=== PATIENT | female | born 2000 | race Caucasian/White ===

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

== ENCOUNTER 2018-03-25 09:54 | Emergency (ER) | payer MEDICAID ==
[~2018-03-25] VITALS: Ht 167.6 cm; Wt 127.0 kg
[2018-03-25] MEDS ORDERED: ONDANSETRON ODT 4 MG PO ONE (10:30)
--- NOTE | 2018-03-25 10:43 | NUR ---
PT TO ED ROOM 26 AMBULATORY FROM [facility] IN [facility]. LAB AT BEDSIDE, PT TO PROVIDE UA, NO NEEDS AT THIS TIME. JOYCELYNTM
[2018-03-25 11:00] VITALS: BP 139/72
[2018-03-25 11:14] LABS: BASOPHILS # (AUTO) 0.05 x10^3/uL (0-0.3); BASOPHILS % (AUTO) 0 % (0-1); EOSINOPHILS # (AUTO) 0.18 x10^3/uL (0-0.8); EOSINOPHILS % (AUTO) 1 % (1-7); LYMPHOCYTES # (AUTO) 3.18 x10^3/uL (1-6.1); LYMPHOCYTES % (AUTO) 25 % (22-44); MD NO; MEAN CORPUSCULAR HEMOGLOBIN 27.7 pg (27.0-34.8); MEAN CORPUSCULAR VOLUME 83.9 fL (80-100); MEAN PLATELET VOLUME 8.5 fL (7.4-10.4); MONOCYTES # (AUTO) 0.55 x10^3/uL (0-1.4); MONOCYTES % (AUTO) 4 % (2-9); NEUTROPHILS # (AUTO) 8.65 x10^3/uL (1.8-8.0); NEUTROPHILS % (AUTO) 69 % (42-75); PLATELET COUNT 405 x10^3/uL (130-400); RED BLOOD COUNT 5.05 x10^6/uL (3.82-5.3); RED CELL DISTRIBUTION WIDTH 14.4 % (9.6-15.2)
[2018-03-25] MEDS ORDERED: ONDANSETRON ODT 4 MG ONE (11:17)
[2018-03-25 11:21] LABS: ANION GAP 8 mmol/L (5-15); CALCIUM 9.4 mg/dL (8.5-10.1); CHLORIDE 108 mmol/L (98-107)
[2018-03-25 11:26] LABS: ALANINE AMINOTRANSFERASE 76 U/L (12-78); ALKALINE PHOSPHATASE 79 U/L (45-117); BILIRUBIN,TOTAL 0.4 mg/dL (0.2-1.0); CREATININE 0.86 mg/dL (0.55-1.02); TOTAL PROTEIN 8.2 g/dL (6.4-8.2)
--- NOTE | 2018-03-25 11:56 | NUR ---
ASSUMED CARE AT THIS TIME. PT GIVEN PO FLUIDS PER ORDER. PT RESTING IN BED AND NAND.
[2018-03-25 12:04] LABS: MICROSCOPIC AUTO
[2018-03-25 12:06] LABS: CULTURE INDICATED? YES
--- NOTE | 2018-03-25 12:13 | NUR ---
Patient/Caregiver given discharge instructions and they have confirmed that they understand the instructions. Patient ambulatory with steady gait.
== END 2018-03-25 12:24 | disposition home or self-care (01) ==
LOC: ED 12:15
DX: B34.9 Viral infection, unspecified (principal)
CPT/HCPCS: 36415; 71046; 80053; 81001; 83690; 84703; 85025; 87086; 99284; Q0162

== ENCOUNTER 2018-04-24 20:24 | Emergency (ER) | payer MEDICAID ==
[~2018-04-24] VITALS: Ht 167.6 cm; Wt 123.0 kg
[2018-04-24 20:28] VITALS: BP 132/72
--- NOTE | 2018-04-24 22:53 | NUR ---
NO ANSWER FOR RME ROOM.
--- NOTE | 2018-04-24 23:00 | NUR ---
NO ANSWER FOR RME ROOM.
--- NOTE | 2018-04-24 23:30 | NUR ---
no answer in lobby # [phone] at [phone]
== END 2018-04-24 23:46 | disposition left against medical advice (07) ==
LOC: ED 23:33
DX: J06.9 Acute upper respiratory infection, unspecified (principal)
CPT/HCPCS: 71046; 99283

== ENCOUNTER 2018-04-25 03:13 | Emergency (ER) | payer MEDICAID ==
[~2018-04-25] VITALS: Ht 167.6 cm; Wt 128.4 kg
[2018-04-25 03:17] VITALS: BP 131/89
[2018-04-25] MEDS ORDERED: ACETAMINOPHEN 325 MG TABLET ONE ×2 (04:00→04:04)
[2018-04-25] MEDS ORDERED: ACETAMINOPHEN 325 MG TABLET PO ONE (04:00)
== END 2018-04-25 04:16 | disposition home or self-care (01) ==
LOC: ED 04:00
DX: B34.9 Viral infection, unspecified (principal); G43.909 Migraine, unspecified, not intractable, without status migrainosus
CPT/HCPCS: 99282

== ENCOUNTER 2018-06-02 14:02 | Emergency (ER) | payer MEDICAID ==
[~2018-06-02] VITALS: Ht 167.6 cm; Wt 127.5 kg
[2018-06-02 14:53] LABS: BASOPHILS # (AUTO) 0.12 x10^3/uL (0-0.3); BASOPHILS % (AUTO) 1 % (0-1); EOSINOPHILS % (AUTO) 1 % (1-7); LYMPHOCYTES # (AUTO) 2.21 x10^3/uL (1-6.1); LYMPHOCYTES % (AUTO) 22 % (22-44); MD NO; MEAN CORPUSCULAR HEMOGLOBIN 27.7 pg (27.0-34.8); MEAN CORPUSCULAR HGB CONC 33.6 g/dL (32.4-35.8); MEAN CORPUSCULAR VOLUME 82.4 fL (80-100); MONOCYTES # (AUTO) 0.73 x10^3/uL (0-1.4); MONOCYTES % (AUTO) 7 % (2-9); NEUTROPHILS # (AUTO) 6.86 x10^3/uL (1.8-8.0); NEUTROPHILS % (AUTO) 69 % (42-75); PLATELET COUNT 371 x10^3/uL (130-400); RED BLOOD COUNT 4.72 x10^6/uL (3.82-5.3); RED CELL DISTRIBUTION WIDTH 14.5 % (9.6-15.2)
[2018-06-02 14:59] LABS: RAPID INFLUENZA A Negative (Negative); RAPID INFLUENZA B Negative (Negative)
[2018-06-02 15:05] LABS: ALANINE AMINOTRANSFERASE 55 U/L (12-78); ALBUMIN 3.7 g/dL (3.4-5.0); ANION GAP 6 mmol/L (5-15); CALCIUM 9.4 mg/dL (8.5-10.1); CHLORIDE 110 mmol/L (98-107); CREATININE 0.68 mg/dL (0.55-1.02)
[2018-06-02 15:10] LABS: ALKALINE PHOSPHATASE 71 U/L (45-117); BILIRUBIN,TOTAL 0.2 mg/dL (0.2-1.0); TOTAL PROTEIN 7.5 g/dL (6.4-8.2)
--- NOTE | 2018-06-02 15:55 | NUR ---
PT AMBULATORY WITH STEADY GAIT TO ROOM FROM [facility]
--- NOTE | 2018-06-02 16:26 | NUR ---
PT PRESENTED TO ED WITH N/V, HEADACHE, FEVER AND GENERAL MALAISE SINCE TODAY. PT PLACED IN ROOM AND PLACED ON BP AND CONT. PULSE OXIMETER. ASSESSMENT COMPLETED. PT WAS SEEN IN PIT AND ORDERS RECEIVED.
[2018-06-02] MEDS ORDERED: ONDANSETRON ODT 4 MG PO ONE (16:30)
[2018-06-02] MEDS ORDERED: KETOROLAC 30 MG/1 ML IM ONE (16:30)
[2018-06-02] MEDS ORDERED: ONDANSETRON ODT 4 MG ONE (16:38)
[2018-06-02] MEDS ORDERED: KETOROLAC 30 MG/1 ML ONE (16:39)
--- NOTE | 2018-06-02 17:01 | NUR ---
REPORT GIVEN TO POLINA SEARS
[2018-06-02 17:05] LABS: MICROSCOPIC AUTO
[2018-06-02 17:06] LABS: CULTURE INDICATED? YES
[2018-06-02 17:27] VITALS: BP 126/78
== END 2018-06-02 17:29 | disposition home or self-care (01) ==
LOC: ED 17:27
DX: R11.2 Nausea with vomiting, unspecified (principal); N30.01 Acute cystitis with hematuria; R07.89 Other chest pain
CPT/HCPCS: 36415; 71046; 80053; 81001; 83690; 84703; 85025; 87086; 87400; 93005; 96372; 99284; J1885; Q0162

== ENCOUNTER 2019-04-03 15:51 | Emergency (ER) | payer MEDICAID ==
[~2019-04-03] VITALS: Ht 167.6 cm; Wt 116.7 kg
[2019-04-03 16:01] VITALS: BP 118/83
[2019-04-03] MEDS ORDERED: IBUPROFEN 200 MG TABLET ONE (16:11)
[2019-04-03] MEDS ORDERED: IBUPROFEN 600 MG TABLET PO ONE (16:30)
== END 2019-04-03 16:46 | disposition home or self-care (01) ==
LOC: ED 16:45
DX: S93.492A Sprain of other ligament of left ankle, initial encounter (principal); G43.909 Migraine, unspecified, not intractable, without status migrainosus; X50.1XXA Overexertion from prolonged static or awkward postures, initial encounter; Y93.89 Activity, other specified; Y92.69 Other specified industrial and construction area as the place of occurrence of the external cause; Y99.8 Other external cause status
CPT/HCPCS: 99283

== ENCOUNTER 2019-05-29 11:55 | Emergency (ER) | payer SELFPAY ==
[~2019-05-29] VITALS: Ht 167.6 cm; Wt 116.5 kg
[2019-05-29 12:06] VITALS: BP 143/92
[2019-05-29] MEDS ORDERED: KETOROLAC 30 MG/1 ML ONE (12:27)
[2019-05-29] MEDS ORDERED: METHOCARBAMOL 750 MG TABLET ONE (12:27)
[2019-05-29] MEDS ORDERED: METHOCARBAMOL 750 MG TABLET PO ONE (12:30)
[2019-05-29] MEDS ORDERED: KETOROLAC 30 MG/1 ML IM ONE (12:30)
--- NOTE | 2019-05-29 12:32 | NUR ---
PT MEDICATED PER MAR
== END 2019-05-29 12:51 | disposition home or self-care (01) ==
LOC: ED 12:50
DX: M54.12 Radiculopathy, cervical region (principal)
CPT/HCPCS: 96372; 99283; J1885; J7512

== ENCOUNTER 2019-09-11 19:19 | Emergency (ER) | payer MEDICAID ==
[~2019-09-11] VITALS: Ht 167.6 cm; Wt 120.3 kg
[2019-09-11] MEDS ORDERED: SODIUM CHLORIDE FLUSH 10ML SYR IVF ONE (20:00)
[2019-09-11] MEDS ORDERED: SODIUM CHLORIDE 0.9% 1,000ML IVBOLUS ONE (20:00)
[2019-09-11 20:02] LABS: BASOPHILS # (AUTO) 0.06 x10^3/uL (0-0.1); BASOPHILS % (AUTO) 1 % (0-1); EOSINOPHILS # (AUTO) 0.15 x10^3/uL (0-0.4); EOSINOPHILS % (AUTO) 2 % (1-7); LYMPHOCYTES # (AUTO) 2.65 x10^3/uL (1-3.4); LYMPHOCYTES % (AUTO) 31 % (22-44); MD NO; MEAN CORPUSCULAR HEMOGLOBIN 27.2 pg (27.0-34.8); MEAN CORPUSCULAR HGB CONC 33.5 g/dL (32.4-35.8); MEAN CORPUSCULAR VOLUME 81.4 fL (80-100); MEAN PLATELET VOLUME 8.3 fL (7.4-10.4); MONOCYTES # (AUTO) 0.73 x10^3/uL (0.2-0.8); MONOCYTES % (AUTO) 9 % (2-9); NEUTROPHILS % (AUTO) 58 % (42-75); PLATELET COUNT 319 x10^3/uL (130-400); RED BLOOD COUNT 4.71 x10^6/uL (3.82-5.3)
--- NOTE | 2019-09-11 20:08 | NUR ---
IV STARTED IN L HAND, PT TOLERATED WELL, LABS DRAWN AND SENT. PT TO IMAGING AT THIS TIME.
[2019-09-11 20:13] LABS: ALANINE AMINOTRANSFERASE 40 U/L (12-78); ALBUMIN 3.4 g/dL (3.4-5.0); ANION GAP 6 mmol/L (5-15); CALCIUM 8.6 mg/dL (8.5-10.1); CHLORIDE 112 mmol/L (98-107); CREATININE 0.92 mg/dL (0.55-1.02)
[2019-09-11 20:18] LABS: ALKALINE PHOSPHATASE 60 U/L (45-117); BILIRUBIN,TOTAL 0.2 mg/dL (0.2-1.0); TOTAL PROTEIN 7.5 g/dL (6.4-8.2)
--- NOTE | 2019-09-11 20:52 | NUR ---
PT RETURNED FROM CT AT THIS TIME. CALL LIGHT IN REACH.
[2019-09-11 21:23] VITALS: BP 128/86
== END 2019-09-11 22:08 | disposition home or self-care (01) ==
LOC: ED 21:30
DX: G43.C0 Periodic headache syndromes in child or adult, not intractable (principal); R10.2 Pelvic and perineal pain; R55 Syncope and collapse; R11.0 Nausea; R94.31 Abnormal electrocardiogram [ECG] [EKG]
CPT/HCPCS: 36415; 70450; 76830; 80053; 84703; 85025; 93005; 96360; 96361; 99285; J7030

== ENCOUNTER 2019-11-10 19:05 | Emergency (ER) | payer MEDICAID ==
[~2019-11-10] VITALS: Ht 167.6 cm; Wt 192.3 kg
--- NOTE | 2019-11-10 19:45 | NUR ---
Assumed care of pt. Pt states atraumatic lower back pain x3 days with mild bilateral lower extremity numbness. Denies tingling. Denies incontinence. Ambualtes independently, steady gait.
[2019-11-10] MEDS ORDERED: HYDROcodone/APAP 5/325 TABLET PO ONE (20:00)
[2019-11-10] MEDS ORDERED: HYDROcodone/APAP 5/325 TABLET ONE (20:05)
--- NOTE | 2019-11-10 20:54 | NUR ---
Pt states good effect from [place]. Pain from 7/10 to 3/10
[2019-11-10] MEDS ORDERED: LIDOCAINE 1%, 10ML INFIL ONE (21:00)
[2019-11-10] MEDS ORDERED: LIDOCAINE-MPF 1%, 5ML ONE ×2 (21:03→21:20)
--- NOTE | 2019-11-10 21:24 | NUR ---
PA at bedside
[2019-11-10 22:01] VITALS: BP 101/68
== END 2019-11-10 22:04 | disposition home or self-care (01) ==
LOC: ED 20:33
DX: L05.01 Pilonidal cyst with abscess (principal); M54.5 Low back pain; G43.909 Migraine, unspecified, not intractable, without status migrainosus
CPT/HCPCS: 10080; 99284

== ENCOUNTER 2020-04-29 16:00 | Emergency (ER) | payer MEDICAID, OTHER ==
[~2020-04-29] VITALS: Ht 167.6 cm; Wt 130.3 kg
--- NOTE | 2020-04-29 16:44 | NUR ---
GAMING MANAGER: PT TO ROOM FROM LOBBY VIA W/C
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
[2020-04-29 17:10] VITALS: BP 150/73
--- NOTE | 2020-04-29 17:33 | NUR ---
PT TO XRAY
--- NOTE | 2020-04-29 17:45 | NUR ---
PT BACK FROM XRAY, RESTING COMFORTABLY
--- NOTE | 2020-04-29 18:24 | NUR ---
DISCHARGE INSTRUCTIONS REVIEWED WITH PT. ALL QUESTIONS ANSWERED AT THIS TIME.
== END 2020-04-29 18:26 | disposition home or self-care (01) ==
LOC: ED 18:25
DX: S29.012A Strain of muscle and tendon of back wall of thorax, initial encounter (principal); R07.89 Other chest pain; M54.2 Cervicalgia; M79.601 Pain in right arm; G43.909 Migraine, unspecified, not intractable, without status migrainosus; V47.6XXA Car passenger injured in collision with fixed or stationary object in traffic accident, initial encounter; Y93.89 Activity, other specified; Y92.89 Other specified places as the place of occurrence of the external cause; Y99.8 Other external cause status
CPT/HCPCS: 71046; 72072; 99284

== ENCOUNTER 2020-06-26 14:51 | Emergency (ER) | payer MEDICAID ==
[~2020-06-26] VITALS: Ht 167.6 cm; Wt 132.0 kg
[2020-06-26 16:11] VITALS: BP 143/73
== END 2020-06-26 16:48 | disposition home or self-care (01) ==
LOC: ED 15:00
DX: B34.9 Viral infection, unspecified (principal); Z20.822 Contact with and (suspected) exposure to COVID-19; R05 Cough; R07.89 Other chest pain; R09.89 Other specified symptoms and signs involving the circulatory and respiratory systems
CPT/HCPCS: 71046; 93005; 99284; U0003

== ENCOUNTER 2020-10-20 22:15 | Emergency (ER) | payer MEDICAID ==
[~2020-10-20] VITALS: Ht 167.6 cm; Wt 133.0 kg
--- NOTE | 2020-10-20 22:45 | NUR ---
SAFETY ANALYST: PT. TO ROOM FROM LOBBY AT THIS TIME.
--- NOTE | 2020-10-20 23:07 | NUR ---
pt at US at this time.
[2020-10-20] MEDS ORDERED: KETOROLAC 60 MG/2 ML ONE (23:22)
[2020-10-20 23:30] LABS: MICROSCOPIC INDICATED
[2020-10-20] MEDS ORDERED: KETOROLAC 30 MG/1 ML IM ONE (23:30)
[2020-10-20 23:47] LABS: BASOPHILS % (AUTO) 1 % (0-1); EOSINOPHILS % (AUTO) 1 % (1-7); LYMPHOCYTES % (AUTO) 23 % (22-44); MEAN CORPUSCULAR HEMOGLOBIN 26.6 pg (27.0-34.8); MEAN CORPUSCULAR HGB CONC 32.9 g/dL (32.4-35.8); MEAN PLATELET VOLUME 7.5 fL (7.4-10.4); MONOCYTES % (AUTO) 7 % (2-9); NEUTROPHILS % (AUTO) 68 % (42-75); PLATELET COUNT 429 x10^3/uL (130-400); RED BLOOD COUNT 4.74 x10^6/uL (3.82-5.3); RED CELL DISTRIBUTION WIDTH 14.9 % (9.6-15.2)
[2020-10-20 23:57] LABS: ALANINE AMINOTRANSFERASE 50 U/L (12-78); ALBUMIN 3.6 g/dL (3.4-5.0); ANION GAP 8 mmol/L (5-15); CALCIUM 8.9 mg/dL (8.5-10.1); CHLORIDE 106 mmol/L (98-107); CREATININE 0.74 mg/dL (0.55-1.02)
[2020-10-21] MEDS ORDERED: ONDANSETRON ODT 4 MG PO ONE
[2020-10-21 00:02] LABS: ALKALINE PHOSPHATASE 72 U/L (45-117); BILIRUBIN,TOTAL 0.3 mg/dL (0.2-1.0); TOTAL PROTEIN 8.2 g/dL (6.4-8.2)
[2020-10-21] MEDS ORDERED: ONDANSETRON ODT 4 MG ONE (00:02)
--- NOTE | 2020-10-21 00:20 | NUR ---
Pt medicated with zofran, resting on gurney, awaiting for us to be read.
--- NOTE | 2020-10-21 01:12 | NUR ---
Break RN: discharge instructions given. All questions and concerns addressed. Patient ambulatory with a steady gait. Belongings with patient.
[2020-10-21 01:13] VITALS: BP 139/82
== END 2020-10-21 01:15 | disposition home or self-care (01) ==
LOC: ED 23:30
DX: E28.2 Polycystic ovarian syndrome (principal); N93.8 Other specified abnormal uterine and vaginal bleeding; M54.5 Low back pain; R42 Dizziness and giddiness; G43.909 Migraine, unspecified, not intractable, without status migrainosus
CPT/HCPCS: 36415; 76830; 80053; 81001; 84703; 85025; 87086; 96372; 99284; J1885; Q0162

== ENCOUNTER 2020-11-21 16:01 | Emergency (ER) | payer MEDICAID ==
[~2020-11-21] VITALS: Ht 167.6 cm; Wt 132.0 kg
[2020-11-21 16:04] VITALS: BP 160/94
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
[2020-11-21] MEDS ORDERED: LIDOCAINE-MPF 1%, 5ML ONE (20:28)
[2020-11-21] MEDS ORDERED: LIDOCAINE 1%, 10ML INFIL ONE (20:30)
[2020-11-21] MEDS ORDERED: CEPHALEXIN 500 MG CAPSULE ONE (20:59)
[2020-11-21] MEDS ORDERED: HYDROcodone/APAP 5/325 TABLET ONE (20:59)
[2020-11-21] MEDS ORDERED: SULFAMETH./TRIMETHOPRIM DS 800MG/160MG TABLET ONE (20:59)
[2020-11-21] MEDS ORDERED: HYDROcodone/APAP 5/325 TABLET PO ONE (21:00)
[2020-11-21] MEDS ORDERED: SULFAMETH./TRIMETHOPRIM DS 800MG/160MG TABLET PO ONE (21:00)
[2020-11-21] MEDS ORDERED: CEPHALEXIN 500 MG CAPSULE PO ONE (21:00)
== END 2020-11-21 21:15 | disposition home or self-care (01) ==
LOC: ED 16:30
DX: L05.01 Pilonidal cyst with abscess (principal)
CPT/HCPCS: 10080; 99284; J3490